=== PATIENT | male | born 1990 | race Hispanic/Latino ===

== ENCOUNTER 2020-08-23 23:54 | Emergency (ER) | payer OTHER, SELFPAY ==
[2020-08-24] MEDS ORDERED: ACETAMINOPHEN 500 MG TAB ONE (00:56)
[2020-08-24 01:06] LABS: Urine Blood NEGATIVE (NEG); Urine Glucose NEGATIVE (NEG); Urine Protein NEGATIVE (NEG); Urine Specific Gravity <1.005 (1.005-1.030); Urine pH 5.5 (5.0-7.0)
[2020-08-24] MEDS ORDERED: dexAMETHasone 10 MG/ML VIAL ONE (01:16)
[2020-08-24] MEDS ORDERED: NA CHLORIDE 0.9% 250 ML ONE (01:16)
[2020-08-24] MEDS ORDERED: AZITHROMYCIN 500 MG INJ IVPB ONE (01:16)
[2020-08-24] MEDS ORDERED: CEFTRIAXONE 1000 MG/VIAL ONE (01:16)
[2020-08-24 01:23] LABS: Absolute Lymphocytes (CBC) 1.5 K/uL (0.7-4.9); Basophils % 0.3 % (0-1.3); Hematocrit 47.5 % (39.6-49.0); Lymphocytes % 20.7 % (15.3-44.8); MPV 8.7 fL (7.6-11.3); RBC Red Blood Cell Count 5.61 M/uL (4.33-5.43)
[2020-08-24] MEDS ORDERED: ONDANSETRON 4 MG/2 ML VIAL ONE (01:39)
[2020-08-24] MEDS ORDERED: FAMOTIDINE 20 MG/2 ML VIAL IV ONE (01:40)
[2020-08-24 02:09] LABS: Albumin 4.1 g/dL (3.4-5.0); Bilirubin Total 0.4 mg/dL (0.2-1.0); Potassium 3.7 mmol/L (3.5-5.1); Protein, Total 8.1 g/dL (6.4-8.2)
--- NOTE | 2020-08-24 02:10 | ER ---
Nurse's Notes [facility] Name: Jo Bacon Age: 30 yrs Sex: Male : 1990 Arrival Date: 08/23/2020 Time: 23:59 Bed 6 Private MD: Diagnosis: Fever, unspecified;Acute upper respiratory infection, unspecified;Malaise and fatigue Presentation: 08/24 00:07 Chief complaint: Patient states: Reports fever, chills. body aches that started Wednesday. ea Pt reports he started feeling dizzy and started having low back pain today. Coronavirus screen: Client presents with at least one sign or symptom that may indicate coronavirus-19. Ebola Screen: No symptoms or risks identified at this time. Initial Sepsis Screen: Does the patient meet any 2 criteria? Temp <36.0*C (96.8*F)) or > 38.3*C (100.9*F). HR > 90 bpm. Yes No. Patient's initial sepsis screen is negative. Does the patient have a suspected source of infection? No. Patient's initial sepsis screen is negative. Risk Assessment: Do you want to hurt yourself or someone else? Patient reports no desire to harm self or others. Onset of symptoms was August 24, 2020. 00:07 Method Of Arrival: Ambulatory ea 00:07 Acuity: GARRISON 3 ea Triage Assessment: 00:14 General: Appears uncomfortable, Behavior is appropriate for age. Pain: Complains of ea pain in low back area, body aches. EENT: Reports sore throat. Historical: - Allergies: 00:13 No Known Allergies; ea - Home Meds: 00:13 None [Active]; ea - PMHx: 00:13 None; ea - PSHx: 00:13 None; ea - Immunization history:: Adult Immunizations up to date. - Social history:: Smoking status: Patient reports the use of cigarette tobacco products, denies chronic smoking, but will smoke occasionally. - Family history:: not pertinent. Screenin:12 Abuse screen: Denies threats or abuse. Nutritional screening: No deficits noted. ea Tuberculosis screening: No symptoms or risk factors identified. Fall Risk None identified. Assessment: 00:25 Reassessment: see triage assessment. Respiratory: Airway is patent Respiratory effort ll2 is even, unlabored, Breath sounds with crackles in right posterior middle lobe and right posterior lower lobe. EENT: 01:00 Reassessment: Patient and/or family updated on plan of care and expected duration. Pain ll2 level reassessed. Patient is alert, oriented x 3, equal unlabored respirations, skin warm/dry/pink. 02:11 Reassessment: Patient and/or family updated on plan of care and expected duration. Pain ll2 level reassessed. Patient is alert, oriented x 3, equal unlabored respirations, skin warm/dry/pink. 02:17 Reassessment: D/C pending results of flu and strep. ll2 03:15 EENT: Throat is reddened. ll2 Vital Signs: 00:06 BP 151 / 97; Pulse 105; Resp 18; Temp 101.8; Pulse Ox 98% on R/A; mg2 01:17 BP 142 / 89; Pulse 90; Resp 18; Pulse Ox 97% on R/A; ll2 02:19 BP 136 / 68; Pulse 79; Resp 16; Pulse Ox 97% on R/A; ll2 ED Course: 08/23 23:59 Patient arrived in ED. am2 17 00:03 Kaiden Sam MD is Attending Physician. cyndy 00:08 Kimmy Malloy, SINDHU is Primary Nurse. ll2 00:10 Triage completed. ea 00:12 Patient has correct armband on for positive identification. Bed in low position. Call ea light in reach. Pulse ox on. NIBP on. 00:12 Arm band placed on right wrist. Patient placed in an exam room, on a stretcher, on ea pulse oximetry. 01:05 Chest Single View XRAY In Process Unspecified. EDMS 01:16 Initial lab(s) drawn, by me, sent to lab. Inserted saline lock: 20 gauge in right ll2 antecubital area, using aseptic technique. Blood collected. 02:10 Zaire Marshall MD is Referral Physician. cyndy 02:10 Flu/strep/COVID swab walked to outside lab as per hospital policy. sg 03:15 No provider procedures requiring assistance completed. IV discontinued, intact, ll2 bleeding controlled, No redness/swelling at site. Pressure dressing applied. Administered Medications: 00:47 Drug: Tylenol 1000 mg Route: PO; ea 01:16 Follow up: Response: No adverse reaction ll2 01:11 CANCELLED (Duplicate Order): Tylenol 1000 mg PO once ea 01:15 Drug: Zithromax 500 mg Route: IVPB; Infused Over: 1 hrs; Site: right antecubital; ll2 03:16 Follow up: Response: No adverse reaction; IV Status: Completed infusion ll2 01:15 Drug: Decadron - Dexamethasone 10 mg Route: IVP; Site: right antecubital; ll2 02:55 Follow up: Response: No adverse reaction ll2 01:16 Drug: Rocephin 1 grams Route: IV; Rate: per protocol; Site: right antecubital; ll2 01:30 Drug: Pepcid 20 mg Route: IVP; Site: right antecubital; ea 02:05 Follow up: Response: No adverse reaction ll2 Outcome: 02:10 Discharge ordered by . cyndy 03:15 Discharged to home ambulatory. ll2 03:15 Condition: stable 03:15 Discharge instructions given to patient, Instructed on discharge instructions, follow up and referral plans. medication usage, Demonstrated understanding of instructions, follow-up care, medications, Prescriptions given X 3. 03:15 Patient left the ED. ll2 Addendum: 08/26/2020 17:28 Addendum: COVID-19 Result: Positive result giiven to ED physician to notify pt. s s Physician: Porter Moore MD Physician was able to contact pt and pt was notified of positive COVID-19 swab result. Physician answered pt questions. Signatures: Dispatcher [employer] EDMS Paul Gomez RN RN sg Anderson, Corey, MD MD cha Smirch, Shelby, RN RN Karla Bacon Elena, RN RN ea Gardose, Michele, RN RN mg2 Linscombe, Lacie, RN RN ll2 Corrections: (The following items were deleted from the chart) 08/24 00:12 00:07 Initial Sepsis Screen: Does the patient meet any 2 criteria? No. Patient's ea initial sepsis screen is negative. Does the patient have a suspected source of infection? No. Patient's initial sepsis screen is negative. ea 08/26 17:29 17:28 Addendum: COVID-19 Result: Positive result giiven to ED physician to notify pt. Physician: Porter Moore MD ss
--- NOTE | 2020-08-24 02:10 | EDPHYS ---
Physician Documentation [facility] Name: Jo Bacon Age: 30 yrs Sex: Male : 1990 Arrival Date: 08/23/2020 Time: 23:59 Bed 6 Private MD: ED Physician Kaiden Sam HPI: 08/24 00:48 This 30 yrs old Male presents to ER via Ambulatory with complaints of Fever, cyndy chills, Dizziness, Sore Throat, Pain All Over. 00:48 The patient reports fever, that was measured at 101 degrees Fahrenheit. Onset: The cyndy symptoms/episode began/occurred 2 day(s) ago. Modifying factors: there are no obvious modifying factors. Associated signs and symptoms: Pertinent positives: arthralgias, chills, cough, diarrhea. Severity of symptoms: At their worst the symptoms were mild moderate in the emergency department the symptoms are unchanged. The patient has not experienced similar symptoms in the past. Historical: - Allergies: 00:13 No Known Allergies; ea - Home Meds: 00:13 None [Active]; ea - PMHx: 00:13 None; ea - PSHx: 00:13 None; ea - Immunization history:: Adult Immunizations up to date. - Social history:: Smoking status: Patient reports the use of cigarette tobacco products, denies chronic smoking, but will smoke occasionally. - Family history:: not pertinent. ROS: 00:48 Eyes: Negative for injury, pain, redness, and discharge, Neck: Negative for injury, cyndy pain, and swelling, Cardiovascular: Negative for chest pain, palpitations, and edema, Abdomen/GI: Negative for abdominal pain, nausea, vomiting, diarrhea, and constipation, Back: Negative for injury and pain, : Negative for injury, bleeding, discharge, and swelling, MS/Extremity: Negative for injury and deformity, Skin: Negative for injury, rash, and discoloration, Neuro: Negative for headache, weakness, numbness, tingling, and seizure. 00:48 Constitutional: Positive for body aches, chills, fatigue, fever, malaise. 00:48 Respiratory: Positive for cough, shortness of breath, at rest. Exam: 00:48 Head/Face: Normocephalic, atraumatic. Eyes: Pupils equal round and reactive to light, cynyd extra-ocular motions intact. Lids and lashes normal. Conjunctiva and sclera are non-icteric and not injected. Cornea within normal limits. Periorbital areas with no swelling, redness, or edema. ENT: Nares patent. No nasal discharge, no septal abnormalities noted. Tympanic membranes are normal and external auditory canals are clear. Oropharynx with no redness, swelling, or masses, exudates, or evidence of obstruction, uvula midline. Mucous membranes moist. Neck: Trachea midline, no thyromegaly or masses palpated, and no cervical lymphadenopathy. Supple, full range of motion without nuchal rigidity, or vertebral point tenderness. No Meningismus. Chest/axilla: Normal chest wall appearance and motion. Nontender with no deformity. No lesions are appreciated. Respiratory: Lungs have equal breath sounds bilaterally, clear to auscultation and percussion. No rales, rhonchi or wheezes noted. No increased work of breathing, no retractions or nasal flaring. Abdomen/GI: Soft, non-tender, with normal bowel sounds. No distension or tympany. No guarding or rebound. No evidence of tenderness throughout. Back: No spinal tenderness. No costovertebral tenderness. Full range of motion. Male : Normal genitalia with no discharge or lesions. Skin: Warm, dry with normal turgor. Normal color with no rashes, no lesions, and no evidence of cellulitis. MS/ Extremity: Pulses equal, no cyanosis. Neurovascular intact. Full, normal range of motion. Neuro: Awake and alert, GCS 15, oriented to person, place, time, and situation. Cranial nerves II-XII grossly intact. Motor strength 5/5 in all extremities. Sensory grossly intact. Cerebellar exam normal. Normal gait. Psych: Awake, alert, with orientation to person, place and time. Behavior, mood, and affect are within normal limits. 00:48 Constitutional: The patient appears well developed, well hydrated, frail, in obvious distress, mildly distressed. 00:48 Respiratory: the patient does not display signs of respiratory distress, Respirations: normal, no acute changes, Breath sounds: rhonchi, that are mild, are scattered. 00:55 Neck: ROM/movement: is normal, no acute changes, pain, is not appreciated, limited cyndy range of motion, is not appreciated, Meningeal signs: are not present, Kernig's sign is negative, Brudzinski's sign is negative, nuchal rigidity, is not appreciated. 00:55 Musculoskeletal/extremity: DVT Exam: No signs of deep vein thrombosis. no pain, no swelling, no tenderness, negative Homans' sign noted on exam, no appreciated bluish discoloration, no erythema, no increased warmth. Vital Signs: 00:06 BP 151 / 97; Pulse 105; Resp 18; Temp 101.8; Pulse Ox 98% on R/A; mg2 01:17 BP 142 / 89; Pulse 90; Resp 18; Pulse Ox 97% on R/A; ll2 02:19 BP 136 / 68; Pulse 79; Resp 16; Pulse Ox 97% on R/A; ll2 MDM: 00:03 Patient medically screened. [facility] 00:48 Differential diagnosis: viral Infection, bacterial infection, URI, bronchitis, cyndy pneumonia UTI, gastroenteritis. Data reviewed: vital signs, nurses notes, lab test result(s), radiologic studies, plain films. Data interpreted: library monitor: rate is 105 beats/min, rhythm is regular. Test interpretation: by ED physician or midlevel provider: plain radiologic studies. Counseling: I had a detailed discussion with the patient and/or guardian regarding: the historical points, exam findings, and any diagnostic results supporting the discharge/admit diagnosis, lab results, radiology results, the need for outpatient follow up, for definitive care, a family practitioner. 08/24 00:29 Order name: Strep; Complete Time: 03:08 08/24 00:29 Order name: Flu; Complete Time: 03:08 08/24 00:29 Order name: COVID-19 08/24 00:47 Order name: CBC with Diff; Complete Time: 01:36 [facility] 08/24 00:47 Order name: Comprehensive Metabolic Panel; Complete Time: 02:09 [facility] 08/24 00:51 Order name: Urine Dipstick--Ancillary (enter results); Complete Time: 01:16 mw2 08/24 00:47 Order name: Chest Single View XRAY [facility] 08/24 02:59 Order name: Throat Culture [facility] 08/24 00:29 Order name: Urine Dipstick-Ancillary (obtain specimen); Complete Time: 00:45 ea Administered Medications: 00:47 Drug: Tylenol 1000 mg Route: PO; ea 01:16 Follow up: Response: No adverse reaction ll2 01:11 CANCELLED (Duplicate Order): Tylenol 1000 mg PO once ea 01:15 Drug: Zithromax 500 mg Route: IVPB; Infused Over: 1 hrs; Site: right antecubital; ll2 03:16 Follow up: Response: No adverse reaction; IV Status: Completed infusion ll2 01:15 Drug: Decadron - Dexamethasone 10 mg Route: IVP; Site: right antecubital; ll2 02:55 Follow up: Response: No adverse reaction ll2 01:16 Drug: Rocephin 1 grams Route: IV; Rate: per protocol; Site: right antecubital; ll2 01:30 Drug: Pepcid 20 mg Route: IVP; Site: right antecubital; ea 02:05 Follow up: Response: No adverse reaction ll2 Disposition: 08/24/20 02:10 Discharged to Home. Impression: Fever, unspecified, Acute upper respiratory infection, unspecified, Malaise and fatigue. - Condition is Stable. - Discharge Instructions: Fever, Adult, Upper Respiratory Infection, Adult, Weakness, Cool Mist Vaporizer, Weakness, [id number], Aspirin and Your Heart, Cough, Adult. - Prescriptions for dexamethasone 2 mg Oral tablet - take 1 tablet by ORAL route 3 times per day; 15 tablet. Pepcid 20 mg Oral Tablet - take 1 tablet by ORAL route every 12 hours for 10 days; 20 tablet. Zithromax 500 mg Oral Tablet - take 1 tablet by ORAL route once daily for 5 days; 5 tablet. - Medication Reconciliation Form, Thank You Letter, Antibiotic Education, Prescription Opioid Use form. - Follow up: Private Physician; When: 2 - 3 days; Reason: Recheck today's complaints, Continuance of care, Re-evaluation by your physician. Follow up: Zaire Marshall MD; When: 2 - 3 days; Reason: Recheck today's complaints, Continuance of care, Re-evaluation by your physician. - Problem is new. - Symptoms have improved. Signatures: Dispatcher [employer] EDKaiden Kerr MD MD cha Antunez, Elena RN Kimmy Last ea, RN RN ll2 Corrections: (The following items were deleted from the chart) 01:11 00:47 Tylenol 1000 mg PO once ordered. cyndy jackson 02:11 02:10 08/24/2020 02:10 Discharged to Home. Impression: Fever, unspecified; Acute upper cyndy respiratory infection, unspecified; Malaise and fatigue. Condition is Stable. Discharge Instructions: Fever, Adult, Upper Respiratory Infection, Adult, Weakness, Cool Mist Vaporizer, Weakness, [id number], Aspirin and Your Heart, Cough, Adult. Prescriptions for dexamethasone 2 mg Oral tablet - take 1 tablet by ORAL route 3 times per day; 15 tablet, Pepcid 20 mg Oral Tablet - take 1 tablet by ORAL route every 12 hours for 10 days; 20 tablet, Zithromax 500 mg Oral Tablet - take 1 tablet by ORAL route once daily for 5 days; 5 tablet. and Forms are Medication Reconciliation Form, Thank You Letter, Antibiotic Education, Prescription Opioid Use. Follow up: Private Physician; When: 2 - 3 days; Reason: Recheck today's complaints, Continuance of care, Re-evaluation by your physician. Problem is new. Symptoms have improved. [facility] 03:15 02:11 08/24/2020 02:10 Discharged to Home. Impression: Fever, unspecified; Acute upper ll2 respiratory infection, unspecified; Malaise and fatigue. Condition is Stable. Discharge Instructions: Fever, Adult, Upper Respiratory Infection, Adult, Weakness, Cool Mist Vaporizer, Weakness, [id number], Aspirin and Your Heart, Cough, Adult. Prescriptions for dexamethasone 2 mg Oral tablet - take 1 tablet by ORAL route 3 times per day; 15 tablet, Pepcid 20 mg Oral Tablet - take 1 tablet by ORAL route every 12 hours for 10 days; 20 tablet, Zithromax 500 mg Oral Tablet - take 1 tablet by ORAL route once daily for 5 days; 5 tablet. and Forms are Medication Reconciliation Form, Thank You Letter, Antibiotic Education, Prescription Opioid Use. Follow up: Private Physician; When: 2 - 3 days; Reason: Recheck today's complaints, Continuance of care, Re-evaluation by your physician. Follow up: Zaire Marshall; When: 2 - 3 days; Reason: Recheck today's complaints, Continuance of care, Re-evaluation by your physician. Problem is new. Symptoms have improved. [facility]
[2020-08-24 03:31] VITALS: TEMP 101.8
[2020-08-24 03:33] VITALS: BP 136/68; O2SAT 97
--- NOTE | 2020-08-24 08:51 | RAD REPORT ---
EXAM DESCRIPTION: RAD - Chest Single View - 08/24/2020 1:07 am CLINICAL HISTORY: COUGH, fever, body aches COMPARISON: Two view chest April 2013 TECHNIQUE: AP portable chest image was obtained 08/24/2020 1:07 am . FINDINGS: Portable study shows low lung volumes and slight motion degradation. No mass or consolidat ion confirmed. There is subtle increased opacification lateral mid right lung field abutting the clarita r fissure. Finding is suspicious for early right upper lobe pneumonia. No other focal lung parenchyma l process seen. Heart and vasculature are normal. No measurable pleural effusion and no pneumothorax. No acute bony abnormality seen. No acute aortic findings suspected. IMPRESSION: Small or early right upper lobe pneumonia is suspected.
== END 2020-08-24 03:15 | disposition home or self-care (01) ==
LOC: ER 23:54
DX: U07.1 COVID-19 (principal); J06.9 Acute upper respiratory infection, unspecified; R53.81 Other malaise; R53.83 Other fatigue; F17.210 Nicotine dependence, cigarettes, uncomplicated
CPT/HCPCS: 96365; 87070; 85025; 36415; 87081; 81003; 80053; 87804 ×2; 71045; 96375; 99284; 96366; U0002; J0456; J1100; J7050; J2405

== ENCOUNTER 2021-05-28 18:04 | Emergency (ER) | payer SELFPAY ==
[2021-05-28] MEDS ORDERED: TETANUS & DIPHTHERIA TOX,ADULT 0.5 ML VIAL ONE (21:02)
[2021-05-28] MEDS ORDERED: SMZ./TMP. 800/160 MG TABLET ONE (21:02)
--- NOTE | 2021-05-28 21:14 | RAD REPORT ---
EXAM DESCRIPTION: RAD - Tib Fib Right - 05/28/2021 9:04 pm CLINICAL HISTORY: PAIN COMPARISON: No comparisons FINDINGS: No fracture of the tibia or fibula is identified. No soft tissue gas or radiopaque foreign bodies. IMPRESSION: Unremarkable tibia and fibula.
--- NOTE | 2021-05-28 21:20 | EDPHYS ---
Physician Documentation [facility] Name: Jo Bacon Age: 31 yrs Sex: Male : 1990 Arrival Date: 05/28/2021 Time: 18:06 Bed 27 Private MD: ED Physician Inder Bell HPI: 05/28 21:13 This 31 yrs old Male presents to ER via Ambulatory with complaints of Wound cp Infection. 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 Patient c/o redness to area. Denies drainage. Historical: - Allergies: 18:47 No Known Allergies; ca1 - PMHx: 18:47 None; ca1 - PSHx: 18:47 None; ca1 - Immunization history:: Client reports having NOT received the Covid vaccine. Last tetanus immunization: unknown, Flu vaccine is not up to date. - Social history:: Smoking status: Patient reports the use of cigarette tobacco products, smokes one pack cigarettes per day. ROS: 21:16 Eyes: Negative for injury, pain, redness, and discharge. cp 21:16 Constitutional: Negative for body aches, chills, fever, poor PO intake. 21:16 Respiratory: Negative for cough, shortness of breath, wheezing. 21:16 Abdomen/GI: Negative for abdominal pain, nausea, vomiting, and diarrhea. 21:16 Skin: Positive for of the right calf, injury. 21:16 All other systems are negative. Exam: 21:16 Constitutional: The patient appears in no acute distress, alert, awake, non-toxic, well cp developed, well nourished. 21:16 Skin: cellulitis, that is mild, well demarcated, on the right calf, injury, laceration(s), of the right calf, that can be described as no foreign body, irregular, without bleeding, very superficial. Vital Signs: 18:45 BP 138 / 78; Pulse 69; Resp 16 S; Temp 98.5(TE); Pulse Ox 99% ; Weight 97.52 kg (R); ca1 Height 5 ft. 8 in. (172.72 cm) (R); 18:45 Body Mass Index 32.69 (97.52 kg, 172.72 cm) ca1 MDM: 20:35 Patient medically screened. cp 21:17 Differential diagnosis: abscess, cellulitis. Data reviewed: vital signs, nurses notes, cp radiologic studies, plain films. Test interpretation: by ED physician or midlevel provider: plain radiologic studies. Counseling: I had a detailed discussion with the patient and/or guardian regarding: the historical points, exam findings, and any diagnostic results supporting the discharge/admit diagnosis, radiology results, to return to the emergency department if symptoms worsen or persist or if there are any questions or concerns that arise at home. 05/28 20:35 Order name: XRAY Tib Fib RIGHT; Complete Time: 21:20 cp 05/28 21:20 Interpretation: Report reviewed. cp Administered Medications: 20:44 Drug: Tetanus-Diphtheria Toxoid Adult 0.5 ml {[employer]: [employer]. Exp: em 01/23/2023. Lot #: [id number]. } Route: IM; Site: right deltoid; 21:25 Follow up: Response: No adverse reaction em 20:44 Drug: Bactrim (trimethoprim-sulfamethoxazole) (160 mg-800 mg (DS) 1 tablet Route: PO; em 21:25 Follow up: Response: No adverse reaction em Disposition: 21:25 Chart complete. cp 23:18 Co-signature as Attending Physician, Inder Bell MD. rn Disposition Summary: 05/28/21 21:19 Discharge Ordered Location: Home cp Problem: new cp Symptoms: have improved cp Condition: Stable cp Diagnosis - Local infection of the skin and subcutaneous tissue, unspecified - right calf cp Followup: cp - With: Private Physician - When: 2 - 3 days - Reason: Worsening of condition Discharge Instructions: - Discharge Summary Sheet cp - Cellulitis, Adult cp Forms: - Medication Reconciliation Form cp - Thank You Letter cp - Antibiotic Education cp - Prescription Opioid Use cp Prescriptions: - Bactrim DS 800-160 mg Oral Tablet - take 1 tablet by ORAL route every 12 hours for 10 days; 20 tablet; Refills: 0, cp Product Selection Permitted Signatures: Dispatcher [employer] Antonio Fleming, RN RN Inder Mckeon MD MD rn Page, Corey, PA PA cp Rose Marie Irvin RN RN ca1
--- NOTE | 2021-05-28 21:20 | ER ---
Nurse's Notes [facility] Name: Jo Bacon Age: 31 yrs Sex: Male : 1990 Arrival Date: 05/28/2021 Time: 18:06 Bed 27 Private MD: Diagnosis: Local infection of the skin and subcutaneous tissue, unspecified-right calf Presentation: 05/28 18:45 Chief complaint: Patient states: Abscess on R calf x 6 days. Coronavirus screen: Client ca1 denies travel out of the [place] in the last 14 days. At this time, the client does not indicate any symptoms associated with coronavirus-19. Ebola Screen: Patient negative for fever greater than or equal to 101.5 degrees Fahrenheit, and additional compatible Ebola Virus Disease symptoms Patient denies exposure to infectious person. Patient denies travel to an Ebola-affected area in the 21 days before illness onset. No symptoms or risks identified at this time. Initial Sepsis Screen: Does the patient meet any 2 criteria? No. Patient's initial sepsis screen is negative. Does the patient have a suspected source of infection? No. Patient's initial sepsis screen is negative. Risk Assessment: Do you want to hurt yourself or someone else? Patient reports no desire to harm self or others. Onset of symptoms was May 23, 2021. 18:45 Method Of Arrival: Ambulatory ca1 18:45 Acuity: GARRISON 4 ca1 Historical: - Allergies: 18:47 No Known Allergies; ca1 - PMHx: 18:47 None; ca1 - PSHx: 18:47 None; ca1 - Immunization history:: Client reports having NOT received the Covid vaccine. Last tetanus immunization: unknown, Flu vaccine is not up to date. - Social history:: Smoking status: Patient reports the use of cigarette tobacco products, smokes one pack cigarettes per day. Screenin:45 Abuse screen: Denies threats or abuse. Nutritional screening: No deficits noted. em Tuberculosis screening: No symptoms or risk factors identified. Fall Risk None identified. Assessment: 20:20 General: Appears in no apparent distress. comfortable, Behavior is calm, cooperative, em appropriate for age. Pain: Complains of pain in right calf. Neuro: Level of Consciousness is awake, alert, obeys commands, Oriented to person, place, time, situation. Cardiovascular: Capillary refill < 3 seconds Patient's skin is warm and dry. Respiratory: Airway is patent Respiratory effort is even, unlabored, Respiratory pattern is regular, symmetrical. Derm: Skin is intact, is healthy with good turgor, Skin is pink, warm \T\ dry. Wound noted right calf Bruising that is on right calf. Musculoskeletal: Capillary refill < 3 seconds, Range of motion: intact in all extremities. Vital Signs: 18:45 BP 138 / 78; Pulse 69; Resp 16 S; Temp 98.5(TE); Pulse Ox 99% ; Weight 97.52 kg (R); ca1 Height 5 ft. 8 in. (172.72 cm) (R); 18:45 Body Mass Index 32.69 (97.52 kg, 172.72 cm) ca1 ED Course: 18:06 Patient arrived in ED. mr 18:47 Triage completed. ca1 18:47 Arm band placed on right wrist. ca1 20:30 Antonio Renner RN is Primary Nurse. em 20:31 Kaiden Pedersen PA is PHCP. cp 20:31 Inder Bell MD is Attending Physician. cp 20:45 Patient has correct armband on for positive identification. em 21:04 XRAY Tib Fib RIGHT In Process Unspecified. EDMS 21:13 No provider procedures requiring assistance completed. Patient did not have IV access em during this emergency room visit. Administered Medications: 20:44 Drug: Tetanus-Diphtheria Toxoid Adult 0.5 ml {Expert Medical Writer: [employer]. Exp: em 01/23/2023. Lot #: [id number]. } Route: IM; Site: right deltoid; 21:25 Follow up: Response: No adverse reaction em 20:44 Drug: Bactrim (trimethoprim-sulfamethoxazole) (160 mg-800 mg (DS) 1 tablet Route: PO; em 21:25 Follow up: Response: No adverse reaction em Outcome: 21:19 Discharge ordered by MD. cp 21:24 Discharged to home ambulatory. em 21:24 Condition: stable 21:24 Discharge instructions given to patient, Instructed on discharge instructions, follow up and referral plans. medication usage, Demonstrated understanding of instructions, follow-up care, medications, Prescriptions given X 1. 21:25 Patient left the ED. em Signatures: Dispatcher [employer] Esther Dumont mr Antonio Renner RN RN em Kaiden Pedersen PA PA cp Acob, Cheryl, RN RN ca1 Corrections: (The following items were deleted from the chart) 18:48 18:45 Acuity: GARRISON 3 ca1 ca1
[2021-05-28 21:35] VITALS: BP 138/78; TEMP 98.5; O2SAT 99
== END 2021-05-28 21:25 | disposition home or self-care (01) ==
LOC: ER 18:04
DX: L03.115 Cellulitis of right lower limb (principal); F17.210 Nicotine dependence, cigarettes, uncomplicated; Z23 Encounter for immunization
CPT/HCPCS: 90471; 90714; 99283